=== PATIENT | female | born 2000 | race African-American/Black ===

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

== ENCOUNTER 2019-11-26 14:16 | Emergency (ER) | payer MEDICAID, MEDICARE ==
[~2019-11-26] VITALS: Ht 175.3 cm; Wt 63.0 kg
[2019-11-26] MEDS ORDERED: SODIUM CHLORIDE 0.9% 1,000 ML IV ONE (14:47)
[2019-11-26] MEDS ORDERED: ACETAMINOPHEN 325MG TABLET PO PRN (15:00)
[2019-11-26 15:53] LABS: CHLORIDE 109 mEq/L (98-107)
[2019-11-26 15:57] LABS: BASOPHILS % 0.2 % (0.0-2.0); EOSINOPHILS % 0.1 % (0.0-5.0); HEMOGLOBIN. 14.3 g/dL (12.0-16.0); LYMPHOCYTES % 7.4 % (20.0-50.0); MEAN CORPUSCULAR HEMOGLOBIN 31.5 pg (28.0-32.0); MEAN CORPUSCULAR VOLUME 92.4 fL (81.0-99.0); MEAN PLATELET VOLUME 7.6 fl (7.4-10.4); MONOCYTES % 3.5 % (2.0-8.0); NEUTROPHILS % 88.8 % (40.0-76.0); PLATELET 273 x1000/uL (130-400); RED BLOOD CELL COUNT 4.55 mill/uL (4.2-5.4)
[2019-11-26 16:00] LABS: CLARITY URINE CLOUDY (CLEAR); KETONES URINE 3+ (NEGATIVE); LEUKOCYTE ESTERASE URINE 1+ (NEGATIVE); NITRITE URINE NEGATIVE (NEGATIVE); OCCULT BLOOD URINE 3+ (NEGATIVE); PROTEIN URINE 1+ (NEGATIVE); SPECIFIC GRAVITY URINE 1.024 (1.005-1.030)
[2019-11-26 16:13] LABS: COLOR URINE RED (YELLOW)
[2019-11-26 16:49] LABS: B-HCG QUANTITATIVE 1021 mIU/mL (<3)
[2019-11-26 19:01] VITALS: BP 109/51
== END 2019-11-26 19:23 | disposition home or self-care (01) ==
LOC: ER 14:16
DX: O20.0 Threatened abortion (principal); J45.909 Unspecified asthma, uncomplicated; F12.10 Cannabis abuse, uncomplicated; Z3A.10 10 weeks gestation of pregnancy
CPT/HCPCS: 36415; 76801; 76817; 80053; 81003; 81025; 84702; 85025; 86850; 86900; 86901; 88305; 93005; 96360; 96361; 99285; J7030